=== PATIENT | female | born 1965 | race Two or more races ===

== ENCOUNTER 2023-05-31 21:34 | Inpatient (IN) | payer OTHER ==
[~2023-05-31] VITALS: Ht 160 cm; Wt 99.8 kg
[~2023-05-31 21:34] MED LIST: ASPI1TAB PO; LORA0.5T83 PO
[2023-05-31 23:05] LABS: BASOPHILS % (AUTO) 0.8 % (0.0-2.0); EOSINOPHILS % (AUTO) 3.6 % (1.0-6.0); HEMOGLOBIN 13.4 g/dL (12.0-16.0); LYMPHOCYTES # (AUTO) 2.2 K/uL (1.0-4.8); LYMPHOCYTES % (AUTO) 27.8 % (22.0-44.0); MEAN CORPUSCULAR HEMOGLOBIN 28.8 pg (26.0-34.0); MEAN CORPUSCULAR HGB CONC 33.4 G/dL (31.0-37.0); MEAN CORPUSCULAR VOLUME 86 fL (80-100); MONOCYTES # (AUTO) 0.5 K/uL (0.1-1.0); MONOCYTES % (AUTO) 6.4 % (2.0-9.0); NEUTROPHILS # (AUTO) 4.9 K/uL (1.8-7.7); NEUTROPHILS % (AUTO) 61.4 % (40.0-70.0); PLATELET COUNT (AUTO) 309 K/uL (150-450); RED BLOOD CELL COUNT(AUTO) 4.64 MIL/uL (4.00-5.20); RED CELL DISTRIBUTION WIDTH 14.2 % (11.5-14.5); WHITE BLOOD COUNT (AUTO) 7.9 K/uL (4.5-11.0)
[2023-05-31 23:13] LABS: ANION GAP 6 mmol/L (8-16); CALCIUM, TOTAL 8.9 mg/dL (8.8-10.5); CARBON DIOXIDE 30 mmol/L (22-29); CHLORIDE 106 mmol/L (98-107); CREATININE 0.77 mg/dL (0.60-1.30); GLOMERULAR FILTR. RATE CALC > 60 mL/min (>60); GLUCOSE,RANDOM 152 mg/dL (70-110); SODIUM SERUM 142 mmol/L (136-145); UREA NITROGEN, BLOOD 14 mg/dL (7-18)
[2023-05-31 23:19] LABS: ALANINE AMINOTRANSFERASE 23 U/L (12-78); ALBUMIN 3.2 g/dL (3.4-5.0); ALKALINE PHOSPHATASE 127 U/L (46-116); ASPARTATE AMINOTRANSFERASE 16 U/L (15-37); BILIRUBIN,TOTAL 0.2 mg/dL (0.1-1.0); TOTAL PROTEIN, SERUM 7.3 g/dL (6.4-8.2)
[2023-05-31 23:21] LABS: TROPONIN I-HIGH SENSITIVITY 5 ng/L (<51)
[2023-05-31 23:23] LABS: B-TYPE NATRIURETIC PEPTIDE < 5 pg/mL (0-100); LACTIC ACID 2.1 mmol/L (0.4-2.0)
[2023-06-01] MEDS ORDERED: DEXAMETHASONE SOD PHOS 4 MG/ML 5 ML VIAL IVP ONE
[2023-06-01] MEDS ORDERED: PIPERACILLIN/TAZO 3.375 GM/D5W 50 ML IV ONE
[2023-06-01] MEDS ORDERED: VANCOMYCIN 1GM/WATER(PEG/NADA) 200 ML IV ONE
[2023-06-01] MEDS ORDERED: ACETAMINOPHEN 325 MG TABLET PO PRN ×2 (00:45→13:00)
[2023-06-01] MEDS ORDERED: ONDANSETRON HCL 4 MG/2 ML VIAL IVP PRN ×2 (00:45→13:00)
[2023-06-01] MEDS ORDERED: 0.9% SODIUM CHLORIDE 10 ML SYRINGE IVP PRN (00:45)
[2023-06-01] MEDS ORDERED: SODIUM CHLORIDE 0.9% 1,000 ML IV ONE (00:45)
[2023-06-01] MEDS ORDERED: OxyCODONE HCL/ACETAMINOPHEN 5-325 MG TABLET PO PRN (00:45)
[2023-06-01] MEDS ORDERED: SODIUM CHLORIDE 0.9% 100 ML ONE (00:54)
[2023-06-01] MEDS ORDERED: IOHEXOL 350 MG/ML 100 ML VIAL ONE (00:54)
[2023-06-01 01:40] VITALS: BP 114/58; PULSE 95; RESP 18; TEMP 98.4
[2023-06-01 01:50] LABS: COVID AG,FIA SOURCE NASAL SWAB
[2023-06-01 02:21] LABS: SARS-COV2 (COVID) ANTIGEN,FIA Negative (Negative)
[2023-06-01 04:15] VITALS: BP 126/75; PULSE 91; RESP 18; TEMP 97.6
[2023-06-01 09:32] VITALS: BP 120/72; PULSE 94; RESP 18; TEMP 97.6
[2023-06-01] MEDS ORDERED: BISACODYL 10 MG RECTAL RECTAL SUPPOSITORY PR PRN (13:00)
[2023-06-01] MEDS ORDERED: MORPHINE SULFATE 2 MG/ML SYRINGE IVP PRN (13:00)
[2023-06-01] MEDS ORDERED: ZOLPIDEM TARTRATE 5 MG TABLET PO PRN (13:00)
[2023-06-01] MEDS ORDERED: HYDROCODONE/ACETAMINOPHEN 5-325 MG TABLET PO PRN (13:00)
[2023-06-01] MEDS ORDERED: MAGNESIUM HYDROXIDE SUSPENSION 30 ML UDCUP PO PRN (13:00)
[2023-06-01] MEDS: PIPERACILLIN/TAZO 3.375 GM/D5W 50 ML IV SCH ×2 (16:12→22:36)
[2023-06-01] MEDS: HEPARIN SODIUM,PORCINE 5,000 UNITS/ML VIAL SQ SCH ×2 (16:16→23:41)
[2023-06-01 16:19] VITALS: BP 123/70; PULSE 90; RESP 18; TEMP 98.2
[2023-06-01] MEDS: VANCOMYCIN 1GM/WATER(PEG/NADA) 200 ML IV SCH ×2 (16:42→23:53)
[2023-06-01] MEDS: DOCUSATE SODIUM 100 MG CAPSULE PO SCH ×2 (21:00→22:37)
[2023-06-01] MEDS: NEOMYCIN/BACITRACIN/POLYMYXIN B 30 GM OINTMENT TP SCH (22:36)
[2023-06-02] MEDS: PIPERACILLIN/TAZO 3.375 GM/D5W 50 ML IV SCH ×4 (04:05→21:15)
[2023-06-02 04:15] VITALS: BP 110/62; PULSE 74; RESP 20; TEMP 97.2
[2023-06-02] MEDS: VANCOMYCIN 1GM/WATER(PEG/NADA) 200 ML IV SCH ×3 (07:53→23:10)
[2023-06-02 08:03] VITALS: BP 118/68; PULSE 76; RESP 20; TEMP 97.8
[2023-06-02] MEDS: HEPARIN SODIUM,PORCINE 5,000 UNITS/ML VIAL SQ SCH ×3 (08:22→23:10)
[2023-06-02] MEDS: DOCUSATE SODIUM 100 MG CAPSULE PO SCH ×2 (08:22→21:15)
[2023-06-02] MEDS: PANTOPRAZOLE SODIUM 40 MG DR TABLET PO SCH (08:22)
[2023-06-02] MEDS: NEOMYCIN/BACITRACIN/POLYMYXIN B 30 GM OINTMENT TP SCH ×2 (08:28→21:15)
[2023-06-02 08:30] LABS: BASOPHILS % (AUTO) 0.4 % (0.0-2.0); EOSINOPHILS % (AUTO) 0.4 % (1.0-6.0); HEMATOCRIT 40.1 % (36-46); HEMOGLOBIN 13.1 g/dL (12.0-16.0); LYMPHOCYTES # (AUTO) 2.2 K/uL (1.0-4.8); MEAN CORPUSCULAR HEMOGLOBIN 28.2 pg (26.0-34.0); MEAN CORPUSCULAR HGB CONC 32.6 G/dL (31.0-37.0); MEAN CORPUSCULAR VOLUME 87 fL (80-100); MONOCYTES # (AUTO) 0.4 K/uL (0.1-1.0); MONOCYTES % (AUTO) 3.7 % (2.0-9.0); NEUTROPHILS % (AUTO) 76.5 % (40.0-70.0); PLATELET COUNT (AUTO) 323 K/uL (150-450); RED BLOOD CELL COUNT(AUTO) 4.64 MIL/uL (4.00-5.20); RED CELL DISTRIBUTION WIDTH 14.3 % (11.5-14.5); WHITE BLOOD COUNT (AUTO) 11.8 K/uL (4.5-11.0)
[2023-06-02 08:39] LABS: ANION GAP 6 mmol/L (8-16); CALCIUM, TOTAL 8.7 mg/dL (8.8-10.5); CARBON DIOXIDE 29 mmol/L (22-29); CHLORIDE 104 mmol/L (98-107); CREATININE 0.72 mg/dL (0.60-1.30); GLOMERULAR FILTR. RATE CALC > 60 mL/min (>60); GLUCOSE,RANDOM 102 mg/dL (70-110); POTASSIUM 4.1 mmol/L (3.5-5.1); SODIUM SERUM 139 mmol/L (136-145); UREA NITROGEN, BLOOD 13 mg/dL (7-18)
[2023-06-02 19:55] VITALS: BP 126/74; PULSE 86; RESP 18; TEMP 98.8
[2023-06-03] MEDS: PIPERACILLIN/TAZO 3.375 GM/D5W 50 ML IV SCH ×2 (03:27→10:26)
[2023-06-03 03:32] VITALS: BP 127/77; PULSE 77; RESP 18; TEMP 97.8
[2023-06-03 07:13] LABS: BASOPHILS % (AUTO) 0.9 % (0.0-2.0); EOSINOPHILS % (AUTO) 2.9 % (1.0-6.0); HEMATOCRIT 40.8 % (36-46); HEMOGLOBIN 13.6 g/dL (12.0-16.0); LYMPHOCYTES # (AUTO) 2.8 K/uL (1.0-4.8); LYMPHOCYTES % (AUTO) 38.3 % (22.0-44.0); MEAN CORPUSCULAR HEMOGLOBIN 28.8 pg (26.0-34.0); MEAN CORPUSCULAR HGB CONC 33.4 G/dL (31.0-37.0); MEAN CORPUSCULAR VOLUME 86 fL (80-100); MONOCYTES # (AUTO) 0.4 K/uL (0.1-1.0); MONOCYTES % (AUTO) 5.7 % (2.0-9.0); NEUTROPHILS # (AUTO) 3.9 K/uL (1.8-7.7); NEUTROPHILS % (AUTO) 52.2 % (40.0-70.0); PLATELET COUNT (AUTO) 318 K/uL (150-450); RED BLOOD CELL COUNT(AUTO) 4.73 MIL/uL (4.00-5.20); RED CELL DISTRIBUTION WIDTH 14.4 % (11.5-14.5); WHITE BLOOD COUNT (AUTO) 7.4 K/uL (4.5-11.0)
[2023-06-03 07:27] LABS: ANION GAP 10 mmol/L (8-16); CALCIUM, TOTAL 8.9 mg/dL (8.8-10.5); CARBON DIOXIDE 26 mmol/L (22-29); CHLORIDE 106 mmol/L (98-107); CREATININE 0.86 mg/dL (0.60-1.30); GLOMERULAR FILTR. RATE CALC > 60 mL/min (>60); GLUCOSE,RANDOM 91 mg/dL (70-110); POTASSIUM 4.1 mmol/L (3.5-5.1); SODIUM SERUM 142 mmol/L (136-145); UREA NITROGEN, BLOOD 13 mg/dL (7-18); VANCOMYCIN,RANDOM 21.4 mcg/mL (25.0-50.0)
[2023-06-03] MEDS ORDERED: VANCOMYCIN HCL 1.25 GM in DEXTROSE 5%-WATER 250 ML IV SCH (08:00)
[2023-06-03] MEDS: PANTOPRAZOLE SODIUM 40 MG DR TABLET PO SCH (08:16)
[2023-06-03] MEDS: HEPARIN SODIUM,PORCINE 5,000 UNITS/ML VIAL SQ SCH (08:16)
[2023-06-03] MEDS: DOCUSATE SODIUM 100 MG CAPSULE PO SCH (08:16)
[2023-06-03] MEDS: NEOMYCIN/BACITRACIN/POLYMYXIN B 30 GM OINTMENT TP SCH (08:20)
[2023-06-03 08:35] VITALS: BP 118/75; PULSE 92; RESP 19; TEMP 97.8
[2023-06-03] MEDS ORDERED: LEVO750T68 PO (12:33)
[2023-06-03] MEDS ORDERED: BACI28.434 TP (12:33)
== END 2023-06-03 14:38 | disposition home or self-care (01) | DRG 603 ==
LOC: EMS 21:35 → 6S 06-01 01:07
PROVIDERS: ADMIT Hospitalist; ATTEND Hospitalist
DX: L03.116 Cellulitis of left lower limb (principal); E66.9 Obesity, unspecified; Z20.822 Contact with and (suspected) exposure to COVID-19; F41.9 Anxiety disorder, unspecified; R73.9 Hyperglycemia, unspecified; Z68.39 Body mass index [BMI] 39.0-39.9, adult; Z88.1 Allergy status to other antibiotic agents; Z90.49 Acquired absence of other specified parts of digestive tract
CPT/HCPCS: 73701; 80048; 80053; 80202; 83605; 83880; 84484; 85025; 87040; 99285; J1100; J1644; J2543; J3370; J7030; J7050; J7060; Q9967

== ENCOUNTER 2023-06-22 06:21 | Emergency (ER) | payer OTHER ==
[~2023-06-22] VITALS: Ht 165.1 cm; Wt 90.9 kg
[~2023-06-22 06:21] MED LIST changes: -ASPI1TAB PO; +BACI28.434 TP; +LEVO750T68 PO; -LORA0.5T83 PO
[2023-06-22] MEDS ORDERED: DOXYCYCLINE HYCLATE 100 MG TABLET PO ONE (07:00)
[2023-06-22] MEDS ORDERED: ACETAMINOPHEN 500 MG TABLET PO ONE (07:00)
[2023-06-22] MEDS ORDERED: BACITRACIN 28 GM OINTMENT TP ONE (07:00)
[2023-06-22 07:11] VITALS: BP 118/64; PULSE 98; RESP 15; TEMP 98.2
[2023-06-22] MEDS ORDERED: BACI28.410 TP (07:15)
[2023-06-22] MEDS ORDERED: DOXY-354 PO (07:15)
== END 2023-06-22 08:11 | disposition home or self-care (01) ==
LOC: EMS 06:21
DX: L03.116 Cellulitis of left lower limb (principal); F41.9 Anxiety disorder, unspecified; Z90.49 Acquired absence of other specified parts of digestive tract; Z88.1 Allergy status to other antibiotic agents
CPT/HCPCS: 99284; Z7502; Z7610